=== PATIENT | female | born 2000 | race Two or more races ===

== ENCOUNTER 2020-05-28 10:31 | Inpatient (IN) | payer OTHER ==
[~2020-05-28] VITALS: Ht 152.4 cm; Wt 78.0 kg
--- NOTE | 2020-05-28 10:45 | NUR ---
MS END MAKER NOTES ADMITTED PATIENT FROM [facility] REPORT GIVEN BY LICO SWIFT. PATIENT IN ALERT ORIENTED X 4. NO ACUTE DISTRESS NOTED. BREATHING UNLABORED. DENIED ANY PAIN AT THIS TIME. IV ACCESS PATENT AND INTACT, NO REDNESS, NO SWELLING NOTED. ORIENTED TO THE ROOM .SAFETY MEASURES IN PLACE. CALL LIGHT WITHIN REACH. WILL CONTINUE TO MONITOR ACCORDINGLY.
[2020-05-28 10:50] VITALS: BP 115/62
--- NOTE | 2020-05-28 11:07 | NUR ---
MS RN NOTES PATIENT SEEN AND EVALUATED BY DR GAGE VARGAS WITH NEW ORDER MADE, NOTED AND CARRIED OUT
[2020-05-28] MEDS ORDERED: ZOLPIDEM TARTRATE 5 MG TABLET PO PRN (11:30)
[2020-05-28] MEDS ORDERED: MAG HYDROX/AL HYDROX/SIMETH 30 ML UDC PO PRN (11:30)
[2020-05-28] MEDS ORDERED: ONDANSETRON HCL/PF 4 MG/2 ML VIAL IVP PRN (11:30)
[2020-05-28] MEDS ORDERED: VANCOMYCIN 1.5 GM in IV D5W 500 ML IV SCH (11:30)
[2020-05-28] MEDS ORDERED: ACETAMINOPHEN 325 MG TABLET PO PRN (11:30)
[2020-05-28] MEDS ORDERED: MAGNESIUM HYDROXIDE 30 ML UDC PO PRN (11:30)
[2020-05-28] MEDS ORDERED: HYDROCODONE/APAP 5/325MG TABLET PO PRN (11:30)
[2020-05-28] MEDS ORDERED: PNV11CAP5 PO (11:43)
[2020-05-28] MEDS ORDERED: PIPERACILLIN /TAZOBACTAM 4.5 G in IV D5W 50 ML IV SCH (12:00)
[2020-05-28] MEDS: IV NS 0.9% 1,000 ML IV PRN (12:03)
[2020-05-28] MEDS: VANCOMYCIN 1 GM in IV D5W 250 ML IV SCH ×2 (13:31→21:08)
[2020-05-28] MEDS: ZOSYN IVPB 3.375 G in IV D5W 50ml IV SCH ×2 (14:50→20:09)
--- NOTE | 2020-05-28 16:23 | NUR ---
MS RN NOTES RECEIVED NEW ORDER FROM NICO CARPENTER TO APPLY WARM COMPRESS TO LEFT BREAST TOLERATED AND ENCOURAGE TO EXPRESS BREAST MILK, ORDER CLARIFIED AND READ BACK WITH MD, NOTED AND CARRIED OUT.
--- NOTE | 2020-05-28 19:00 | NUR ---
MS RN CLOSING NOTES PATIENT IN BED ALERT ORIENTED X 4. NO ACUTE DISTRESS NOTED. BREATHING UNLABORED. IV ACCESS PATENT AND INTACT, NO REDNESS, NO SWELLING NOTED. SAFETY MEASURES IN PLACE. CALL LIGHT WITHIN REACH. WILL ENDORSE TO NIGHT NURSE FOR CONTINUITY OF CARE.
--- NOTE | 2020-05-28 19:45 | NUR ---
MS/RN OPENING NOTE RECEIVED PATIENT RESTING IN BED. AWAKE, ALERT AND ORIENTED X 4. ABLE TO MAKE NEEDS KNOWN. NO COMPLAINTS OF PAIN AT THIS TIME. IV ACCESS TO RIGHT AC INTACT AND PATENT. CONTINUES ON IV NS @ 75MLS/HR. CONTINUES ON IV ABX. CALL LIGHT WITHIN REACH. ASPIRATION, FALL AND SAFETY PRECAUTIONS MAINTAINED. WILL CONTINUE TO MONITOR.
[2020-05-28 20:00] VITALS: BP 110/62
--- NOTE | 2020-05-28 21:30 | NUR ---
MS/RN NOTE AT APPROX 21:30 PATIENTS IV INFILTRATED. IV ABX STOPPED. INFILTRATED IV REMOVED. NEW IV PLACED BY RN DISEASE MANAGEMENT TO RIGHT FOREARM #20G. NEW IV SITE INTACT AND PATENT. PRESSURE DRESSING APPLIED TO OLD IV SITE. CONTINUING IV ABX. WILL CONTINUE TO MONITOR.
[2020-05-29] MEDS: ZOSYN IVPB 3.375 G in IV D5W 50ml IV SCH ×4 (01:52→19:53)
[2020-05-29] MEDS: VANCOMYCIN 1 GM in IV D5W 250 ML IV SCH ×3 (04:00→21:10)
[2020-05-29 04:43] LABS: BASOPHILS % (AUTO) 0.6 % (0.0-2.0); EOSINOPHILS % (AUTO) 1.9 % (0.0-6.0); HEMATOCRIT 36 % (33-45); HEMOGLOBIN 12.1 g/dL (11.5-14.8); LYMPHOCYTES # (AUTO) 1.5 /CMM (0.8-4.8); LYMPHOCYTES % (AUTO) 19.7 % (20.0-44.0); MEAN CORPUSCULAR HGB CONC 34 g/dl (31.0-36.0); MEAN CORPUSCULAR VOLUME 84 fL (82-100); MONOCYTES # (AUTO) 0.4 /CMM (0.1-1.30); MONOCYTES % (AUTO) 5.4 % (2.0-12.0); NEUTROPHILS # (AUTO) 5.4 /CMM (1.8-8.9); NEUTROPHILS % (AUTO) 72.4 % (43.0-81.0); PLATELET COUNT (AUTO) 278 /CMM (150-450); RED BLOOD CELL COUNT(AUTO) 4.26 MIL/uL (4.0-5.2); WHITE BLOOD COUNT (AUTO) 7.4 K/uL (4.3-11.0)
[2020-05-29 05:10] LABS: CALCIUM, SERUM 8.7 mg/dL (8.5-10.1); CREATININE 0.8 mg/dL (0.6-1.3); MAGNESIUM 2.1 mg/dL (1.8-2.4); PHOSPHORUS 3.8 mg/dL (2.5-4.9); POTASSIUM 3.7 mmol/L (3.5-5.1)
[2020-05-29 05:22] LABS: THYROID STIMULATING HORMONE 1.38 uIU/mL (0.358-3.74)
--- NOTE | 2020-05-29 07:00 | NUR ---
MS/RN CLOSING NOTE PATIENT CURRENTLY RESTING IN BED. ALERT AND ORIENTED X 4. ABLE TO MAKE NEEDS KNOWN. NO COMPLAINTS OF PAIN AT THIS TIME. IV ACCESS TO LEFT FOREARM INTACT AND PATENT. CONTINUES ON IV NS @ 75MLS/HR. CONTINUES ON IV ABX. CALL LIGHT WITHIN REACH. ASPIRATION, FALL AND SAFETY PRECAUTIONS MAINTAINED. WILL ENDORSE PLAN OF CARE TO ONCOMING SHIFT.
--- NOTE | 2020-05-29 07:31 | NUR ---
MS RN OPENING NOTES RECEIVED PATIENT IN BED, ASLEEP. PATIENT ON ROOM AIR; BREATHING EVEN AND UNLABORED; NO SOB NOTED AT THIS TIME. NO S/S OF PAIN SUCH FACIAL; GRIMACING, MOANING OR GUARDING. RFA IV ACCESS G # 20 PRESENT AND INTACT INFUSING NS @75 MLS/HR. SAFETY PRECAUTIONS IN PLACE; BED IN LOW POSITION AND LOCKED, RAILS UP X2, CALL LIGHT WITHIN REACH. WILL CONTINUE TO MONITOR PATIENT.
[2020-05-29 08:00] VITALS: BP 100/61
[2020-05-29 16:00] VITALS: BP 103/60
--- NOTE | 2020-05-29 16:00 | NUR ---
MS RN NOTES URINE COLLECTED FOR TEST
--- NOTE | 2020-05-29 19:01 | NUR ---
MS RN CLOSING NOTES PATIENT REMAINS IN BED, AWAKE, A/O X4. PATIENT ON ROOM AIR; BREATHING EVEN AND UNLABORED; NO SOB NOTED DURING SHIFT. NO COMPLAINS OF PAIN DURING THE DAY. RFA IV ACCESS G # 20 PRESENT AND INTACT INFUSING NS @75 MLS/HR. ALL NEEDS ATTENDED THROUGHOUT THE DAY. SAFETY PRECAUTIONS IN PLACE; BED IN LOW POSITION AND LOCKED, RAILS UP X2, CALL LIGHT WITHIN REACH. WILL ENDORSE TO HUMAN RESOURCES ADMIN NURSE.
--- NOTE | 2020-05-29 19:30 | NUR ---
MS RN OPENING NOTE RECEIVED PATIENT IN BED. A/OX4. TOLERATING ROOM AIR. RESPIRATIONS ARE EVEN AND UNLABORED. NO S/S SOB NOTED. NO C/O PAIN AT THIS TIME. IN NO APPARENT DISTRESS. PROVIDED NEW WARM COMPRESS. IN NO APPARENT DISTRESS. IV ACCESS IN RFA#20 RUNNING NS@75ML/HR. BED IS LOW AND LOCKED, HOB ELEVATED IN SEMI FOWLERS, SIDE RAILS UP X2, CALL LIGHT WITHIN REACH. WILL CONTINUE TO MONITOR THROUGHOUT SHIFT.
[2020-05-29] MEDS: IV NS 0.9% 1,000 ML IV PRN (19:53)
[2020-05-29 20:00] VITALS: BP 102/58
[2020-05-30] MEDS: ZOSYN IVPB 3.375 G in IV D5W 50ml IV SCH ×3 (01:16→13:42)
[2020-05-30 01:51] VITALS: BP 102/58
[2020-05-30] MEDS: VANCOMYCIN 1 GM in IV D5W 250 ML IV SCH ×2 (04:17→12:00)
--- NOTE | 2020-05-30 06:14 | NUR ---
MS RN CLOSING NOTE PATIENT RESTING IN BED. A/OX4. REMAINS TOLERATING ROOM AIR. NO RESP DISTRESS. NO C/O PAIN THROUGHOUT SHIFT. NO DISTRESS. NO DISTRESS. IV ACCESS MAINTAINED IN RFA#20 RUNNING NS@75ML/HR. BED REMAINS LOW AND LOCKED, HOB ELEVATED IN SEMI FOWLERS, SIDE RAILS UP X2, CALL LIGHT WITHIN REACH. WILL ENDORSE TO ONCOMING SHIFT.
[2020-05-30 07:01] LABS: CALCIUM, SERUM 8.4 mg/dL (8.5-10.1); CREATININE 0.6 mg/dL (0.6-1.3); POTASSIUM 3.7 mmol/L (3.5-5.1)
--- NOTE | 2020-05-30 07:45 | NUR ---
MS RN OPENING NOTE PT RECEIVED IN BED, ASLEEP, BUT AROUSABLE AND RESPONSIVE. PT IS A/O X 4, VERBAL, [place] SPEAKING AND ABLE TO MAKE NEEDS KNOWN. PT HAS NO C/O PAIN AT THIS TIME. PT IS ON ROOM AIR WITH NO S/SX OF RESPIRATORY DISTRESS OR SOB NOTED. PT'S IV ACCESS IS ON LEFT HAND G#20, PATENT, INTACT AND FLUSHING WELL, RUNNING NS AT 75 ML/HR, WITH NO S/SX OF INFILTRATION, INFECTION OR IRRITATION AT THIS TIME. SAFETY MEASURES IN PLACE: BED IN LOWEST POSITION AND LOCKED WITH BOTH UPPER SIDE RAILS UP X 2. CALL LIGHT PLACED WITHIN REACH. WILL CONTINUE TO MONITOR.
[2020-05-30] MEDS: IV NS 0.9% 1,000 ML IV PRN (07:53)
[2020-05-30] MEDS ORDERED: AMOX-427 PO (12:16)
--- NOTE | 2020-05-30 14:57 | NUR ---
MS SENIOR MANAGER QUALITY ASSURANCE NOTE PT DISCHARGED TO HOME. PT IS A/O X 4, VERBAL AND ABLE TO MAKE NEEDS KNOWN. PT IS MEDICALLY STABLE, ON ROOM AIR, WITH NO S/SX OF RESPIRATORY DISTRESS, SOB OR CARDIAC DISTRESS. ID ARM BAND REMOVED. IV ACCESS REMOVED WITH MINIMAL BLEEDING, GAUZE PLACED AND TAPED. DISCHARGE INSTRUCTIONS AND EDUCATION, ALONG WITH DISCHARGE PAPERWORK, GIVEN TO PT WITH SUCCESSFUL RETURN DEMONSTRATION AND VERBALIZATION OF UNDERSTANDING. ALL CARE, NEEDS, MEDICATIONS AND TREATMENTS GIVEN TO PATIENT ORDERED PER FACILITY PROTOCOL. BELONGINGS LIST AND DISCHARGE PAPERWORK SIGNED, GIVEN TO PATIENT, COPIED AND FILED IN CHART. PT LEFT UNIT AT 1435, AMBULATORY WITH STEADY GAIT, ACCOMPANIED BY ME. PICKED UP BY BOYFRIEND WOODY. CHARGE NURSE AWARE OF DISCHARGE.
== END 2020-05-30 15:00 | disposition home or self-care (01) | DRG 561 ==
LOC: TELE 10:31 → MED 11:42
DX: O91.13 Abscess of breast associated with lactation (principal); Z68.34 Body mass index [BMI] 34.0-34.9, adult; R73.9 Hyperglycemia, unspecified
CPT/HCPCS: 36415; 76642-LT-TC; 80048-TC; 80061-TC; 80202-TC; 83735-TC; 84100-TC; 84443-TC; 84703-TC; 85025-TC; 87081-TC; G0378; J2543; J3370; J7030; J7060